=== PATIENT | male | born 1970 | race African-American/Black ===

== ENCOUNTER 2017-01-16 08:03 | Inpatient (IN) | payer OTHER, MEDICAID ==
[~2017-01-16] VITALS: Ht 175.3 cm; Wt 76.8 kg
[2017-01-16 08:07] VITALS: BP 115/78
[2017-01-16] MEDS ORDERED: NACL 0.9% 1,000 ML IV SCH ×2 (08:17→11:35)
[2017-01-16] MEDS ORDERED: KETOROLAC 30 MG/ML VIAL IVP ONE (08:20)
[2017-01-16] MEDS ORDERED: DIPHENOXYLATE /ATROPINE 2.5 MG TAB PO ONE (08:20)
[2017-01-16 09:08] LABS: HEMATOCRIT 47.3 % (36-52); HEMOGLOBIN 15.1 g/dL (12.0-18.0); MEAN CORPUSCULAR HEMOGLOBIN 27 pg (27-31); MEAN CORPUSCULAR HGB CONC 32 g/dL (33-37); MEAN CORPUSCULAR VOLUME 84 fL (80-94); PLATELET COUNT (AUTO) 258 K/uL (140-450); RED BLOOD CELL COUNT(AUTO) 5.66 MIL/uL (4.20-6.10); RED CELL DISTRIBUTION WIDTH 21.9 % (11.6-13.7); WHITE BLOOD COUNT (AUTO) 15.8 K/uL (4.8-10.8)
[2017-01-16 09:28] LABS: ALBUMIN 2.5 g/dL (3.4-5.0); ANION GAP 16.3 (8-16); CALCIUM 10.3 mg/dL (8.5-10.1); CARBON DIOXIDE 22.8 mmol/L (21-32); CREATININE 1.6 mg/dL (0.7-1.3); POTASSIUM 3.1 mmol/L (3.5-5.1); TOTAL BILIRUBIN 0.8 mg/dL (0.0-1.0); TOTAL PROTEIN, SERUM 8.3 g/dL (6.4-8.2)
[2017-01-16 09:43] LABS: BAND % (MANUAL) 10 % (0-8); LYMPHOCYTES % (MANUAL) 8 % (20-46); MONOCYTES % (MANUAL) 4 % (5-12)
[2017-01-16 09:44] LABS: EOSINOPHILS % (MANUAL) 1 % (0-4)
[2017-01-16 09:45] LABS: NEUTROPHILS % (MANUAL) 77 (43-65)
[2017-01-16 09:46] LABS: ANISOCYTOSIS 1+; PLATELET ESTIMATE ADEQUATE
[2017-01-16] MEDS ORDERED: POTASSIUM CHL 40 MEQ/ D5-1/2NS 1,000 ML IV ONE (10:50)
[2017-01-16] MEDS ORDERED: MORPHINE SULFATE 2 MG/ML SYR IVP PRN ×2 (11:35→12:10)
[2017-01-16] MEDS ORDERED: ACETAMINOPHEN 325 MG TAB PO PRN ×2 (11:35→12:10)
[2017-01-16] MEDS ORDERED: HYDROcodone/APAP 5/325 MG 1 TAB TAB PO PRN (11:35)
[2017-01-16] MEDS ORDERED: ONDANSETRON 4 MG/2 ML VIAL IVP PRN (11:35)
[2017-01-16] MEDS ORDERED: ONDANSETRON 4 MG/2 ML VIAL IM/IVP PRN (12:10)
[2017-01-16] MEDS ORDERED: DOCUSATE SODIUM 100 MG GELCAP PO PRN (12:10)
[2017-01-16] MEDS ORDERED: NACL 0.9% 1,500 ML IV SCH (12:20)
[2017-01-16] MEDS: NACL 0.9% 1,000 ML IV SCH ×2 (13:05→18:54)
[2017-01-16 13:15] VITALS: BP 109/64
[2017-01-16 13:29] LABS: INR 1.1 (0.8-1.2); PARTIAL THROMBOPLASTIN TIME 27.2 secs (22-35.6); PROTHROMBIN TIME 11.5 secs (10.8-13.4)
[2017-01-16 13:45] LABS: CHOL/HDL RATIO 3.5 (1-4.5); FREE T4 (FREE THYROXINE) 1.49 ng/dL (0.76-1.46); MAGNESIUM 1.9 mg/dL (1.8-2.4); PHOSPHORUS 3.4 mg/dL (2.5-4.9); THYROID STIMULATING HORMONE 1.54 uIU/mL (0.34-3.74)
[2017-01-16] MEDS: LEVOFLOXACIN 750 MG/D5W PREMIX 150 ML IV SCH (13:53)
[2017-01-16] MEDS: metroNIDAZOLE 500 MG/NS PREMIX 100 ML IV SCH ×2 (13:55→20:55)
[2017-01-16 16:37] VITALS: BP 127/70
[2017-01-16] MEDS ORDERED: DEXTROSE 50% 50 ML SYR IVP PRN (16:50)
[2017-01-16] MEDS ORDERED: NACL 0.9% 1,000 ML IV ONE (17:05)
[2017-01-16] MEDS ORDERED: POTASSIUM CHLORIDE 40 MEQ, LIDOCAINE 1% 25 MG in NACL 0.9% 250 ML IV SCH (18:15)
[2017-01-16] MEDS: HYDROmorphone 1 MG/ML AMP IVP PRN (19:08)
[2017-01-16 19:52] VITALS: BP 122/58
[2017-01-16] MEDS: BLOOD GLUCOSE MONITORING 1 DEV DEV FS SCH (20:54)
[2017-01-16] MEDS: INSULIN LISPRO SLIDING SCALE 100 UNITS/ML VIAL SUBQ PRN (20:57)
[2017-01-16] MEDS ORDERED: FUROSEMIDE 20 MG/2 ML VIAL IVP SCH (21:10)
[2017-01-16 23:21] VITALS: BP 127/73
[2017-01-17] MEDS ORDERED: METOPROLOL 25 MG TAB PO SCH (00:55)
[2017-01-17] MEDS: NACL 0.9% 1,000 ML IV SCH ×2 (01:53→11:52)
[2017-01-17 02:38] LABS: APPEARANCE,URINE CLEAR (CLEAR); BILIRUBIN,URINE NEGATIVE (NEGATIVE); BLOOD, URINE 3+ (NEGATIVE); COLOR,URINE YELLOW (YELLOW); LEUKOCYTE ESTERASE ,URINE NEGATIVE (NEGATIVE); NITRITE, URINE NEGATIVE (NEGATIVE); PH,URINE 5.5 (5.0-9.0); PROTEIN,URINE NEGATIVE (NEGATIVE); UGLUCOSE NEGATIVE (NEGATIVE); UROBILINOGEN,URINE 0.2 EU/dL (0.2 - 1)
[2017-01-17 02:48] LABS: AMPHETAMINE, URINE NEG. ng/ml (NEG <=1000); BARBITURATE, URINE NEG. ng/ml (NEG <=200); BENZODIAZEPINE, URINE NEG. ng/mL (NEG <=200); CANNABINOID, URINE NEG. ng/mL (NEG <=50); COCAINE, URINE NEG. ng/mL (NEG <=300); OPIATE, URINE NEG. ng/mL (NEG <=2000); PHENCYCLIDINE SCREEN,URINE NEG. ng/mL (NEG <=25)
[2017-01-17 02:59] LABS: RBC,URINE 11-20 (MOD) /HPF (0-5)
[2017-01-17 03:00] LABS: BACTERIA,URINE 3+ /HPF (None Seen); SQUAMOUS EPITHELIAL CELL,UR 4-10 (MOD) /LPF (0-3 (FEW))
[2017-01-17 04:30] VITALS: BP 117/58
[2017-01-17] MEDS: metroNIDAZOLE 500 MG/NS PREMIX 100 ML IV SCH ×3 (05:34→21:37)
[2017-01-17] MEDS: BLOOD GLUCOSE MONITORING 1 DEV DEV FS SCH ×4 (06:23→21:36)
[2017-01-17] MEDS: HYDROmorphone 1 MG/ML AMP IVP PRN ×2 (06:27→13:36)
[2017-01-17] MEDS: INSULIN LISPRO SLIDING SCALE 100 UNITS/ML VIAL SUBQ PRN ×3 (06:31→21:44)
[2017-01-17 07:07] LABS: HEMATOCRIT 41.5 % (36-52); HEMOGLOBIN 13.3 g/dL (12.0-18.0); MEAN CORPUSCULAR HEMOGLOBIN 27 pg (27-31); MEAN CORPUSCULAR HGB CONC 32 g/dL (33-37); MEAN CORPUSCULAR VOLUME 84 fL (80-94); PLATELET COUNT (AUTO) 232 K/uL (140-450); RED BLOOD CELL COUNT(AUTO) 4.96 MIL/uL (4.20-6.10); RED CELL DISTRIBUTION WIDTH 22.2 % (11.6-13.7); WHITE BLOOD COUNT (AUTO) 15.7 K/uL (4.8-10.8)
[2017-01-17 07:12] LABS: ANION GAP 13.9 (8-16); CALCIUM 8.9 mg/dL (8.5-10.1); CARBON DIOXIDE 22.2 mmol/L (21-32); CREATININE 1.3 mg/dL (0.7-1.3); POTASSIUM 3.1 mmol/L (3.5-5.1)
[2017-01-17 07:18] LABS: MAGNESIUM 1.7 mg/dL (1.8-2.4); PHOSPHORUS 2.9 mg/dL (2.5-4.9)
[2017-01-17 08:00] VITALS: BP 99/59
[2017-01-17 08:03] LABS: ANISOCYTOSIS 1+; BAND % (MANUAL) 8 % (0-8); BASOPHILS % (MANUAL) 0 % (0-2); EOSINOPHILS % (MANUAL) 5 % (0-4); LYMPHOCYTES % (MANUAL) 11 % (20-46); MONOCYTES % (MANUAL) 14 % (5-12); NEUTROPHILS % (MANUAL) 62 (43-65); PLATELET ESTIMATE ADEQUATE
[2017-01-17] MEDS ORDERED: DIPHENOXYLATE /ATROPINE 2.5 MG TAB PO PRN (09:45)
[2017-01-17] MEDS: HYDROcodone/APAP 7.5/325 MG 1 TAB PO PRN ×2 (09:56→17:47)
[2017-01-17] MEDS ORDERED: MORPHINE SULFATE 2 MG/ML SYR IVP PRN (10:20)
[2017-01-17] MEDS ORDERED: POTASSIUM CHLORIDE 10 MEQ TABER PO SCH (11:00)
[2017-01-17] MEDS ORDERED: MAG SULF 2000 MG/WATER PREMIX 100 ML IV SCH (11:00)
[2017-01-17 12:00] VITALS: BP 101/56
[2017-01-17] MEDS ORDERED: SODIUM PHOS / POTASSIUM PHOS 1 PKT PDR PO SCH (12:00)
[2017-01-17] MEDS: LEVOFLOXACIN 750 MG/D5W PREMIX 150 ML IV SCH (12:31)
[2017-01-17 16:00] VITALS: BP 111/74
[2017-01-17] MEDS ORDERED: MAGNESIUM CITRATE 300 ML BTL PO SCH (18:00)
[2017-01-17] MEDS: METOCLOPRAMIDE 10 MG/2 ML INJ VIAL IVP SCH (18:58)
[2017-01-17] MEDS: POTASSIUM CHL 20 MEQ/NACL 0.9% 1,000 ML IV SCH ×2 (20:00→21:40)
[2017-01-17] MEDS: LACTULOSE 20 GM/30 ML UDC PO SCH (21:37)
[2017-01-18] VITALS: BP 110/58
[2017-01-18] MEDS: METOCLOPRAMIDE 10 MG/2 ML INJ VIAL IVP SCH ×4 (00:36→17:06)
[2017-01-18] MEDS: HYDROmorphone 1 MG/ML AMP IVP PRN ×2 (04:32→17:10)
[2017-01-18] MEDS: metroNIDAZOLE 500 MG/NS PREMIX 100 ML IV SCH ×3 (04:33→21:02)
[2017-01-18 06:31] LABS: ANION GAP 11.6 (8-16); CALCIUM 8.9 mg/dL (8.5-10.1); CARBON DIOXIDE 23.7 mmol/L (21-32); CREATININE 1.2 mg/dL (0.7-1.3); POTASSIUM 3.3 mmol/L (3.5-5.1)
[2017-01-18] MEDS: BLOOD GLUCOSE MONITORING 1 DEV DEV FS SCH ×4 (06:33→21:31)
[2017-01-18 06:35] LABS: MAGNESIUM 2.8 mg/dL (1.8-2.4)
[2017-01-18 06:50] LABS: HEMATOCRIT 40.5 % (36-52); HEMOGLOBIN 12.9 g/dL (12.0-18.0); MEAN CORPUSCULAR HEMOGLOBIN 27 pg (27-31); MEAN CORPUSCULAR HGB CONC 32 g/dL (33-37); MEAN CORPUSCULAR VOLUME 84 fL (80-94); PLATELET COUNT (AUTO) 207 K/uL (140-450); RED BLOOD CELL COUNT(AUTO) 4.81 MIL/uL (4.20-6.10); RED CELL DISTRIBUTION WIDTH 22.3 % (11.6-13.7); WHITE BLOOD COUNT (AUTO) 9.1 K/uL (4.8-10.8)
[2017-01-18 07:22] LABS: BAND % (MANUAL) 13 % (0-8); LYMPHOCYTES % (MANUAL) 11 % (20-46); MONOCYTES % (MANUAL) 6 % (5-12); NEUTROPHILS % (MANUAL) 70 (43-65)
[2017-01-18 08:00] VITALS: BP 110/72
[2017-01-18] MEDS: METOPROLOL 25 MG TAB PO SCH (09:53)
[2017-01-18] MEDS: LACTOBACILLUS RHAMNOSUS GG 1 EACH CAP PO SCH (09:53)
[2017-01-18] MEDS: HYDROcodone/APAP 7.5/325 MG 1 TAB PO PRN (09:53)
[2017-01-18] MEDS: LACTULOSE 20 GM/30 ML UDC PO SCH ×3 (09:53→21:02)
[2017-01-18] MEDS ORDERED: KCL 20 MEQ/WATER INJ PREMIX 200 ML IV SCH (11:00)
[2017-01-18] MEDS: LEVOFLOXACIN 750 MG/D5W PREMIX 150 ML IV SCH (12:42)
[2017-01-18] MEDS ORDERED: BOWEL EVACUANT DRINK 4,000 ML PDS PO SCH (15:02)
[2017-01-18] MEDS: POTASSIUM CHL 20 MEQ/NACL 0.9% 1,000 ML IV SCH (15:26)
[2017-01-18 16:00] VITALS: BP 131/64
[2017-01-18] MEDS ORDERED: POTASSIUM CHLORIDE 40 MEQ, LIDOCAINE 1% 25 MG in NACL 0.9% 250 ML IV SCH (17:00)
[2017-01-18] MEDS: SENNA 8.6 MG TAB PO SCH (17:06)
[2017-01-18] MEDS: INSULIN LISPRO SLIDING SCALE 100 UNITS/ML VIAL SUBQ PRN (17:07)
[2017-01-18 20:00] VITALS: BP 125/60
[2017-01-18 22:45] LABS: ANION GAP 12.1 (8-16); CARBON DIOXIDE 22.1 mmol/L (21-32); CREATININE 1.2 mg/dL (0.7-1.3); POTASSIUM 4.2 mmol/L (3.5-5.1)
[2017-01-19] VITALS: BP 130/76
[2017-01-19] MEDS: POTASSIUM CHL 20 MEQ/NACL 0.9% 1,000 ML IV SCH ×2 (00:05→10:05)
[2017-01-19] MEDS: metroNIDAZOLE 500 MG/NS PREMIX 100 ML IV SCH (05:23)
[2017-01-19] MEDS: METOCLOPRAMIDE 10 MG/2 ML INJ VIAL IVP SCH ×2 (05:24)
[2017-01-19 06:25] LABS: T4 (THYROXINE) 7.5 ug/dL (4.5-12.0)
[2017-01-19] MEDS: BLOOD GLUCOSE MONITORING 1 DEV DEV FS SCH ×2 (06:37→11:59)
[2017-01-19 07:06] LABS: BASOPHILS # (AUTO) 0.2 K/uL (0.00-0.22); BASOPHILS % (AUTO) 2.4 % (0.0-2.0); EOSINOPHILS # (AUTO) 0.1 K/uL (0-0.4); EOSINOPHILS % (AUTO) 2.2 % (0.0-4.0); HEMATOCRIT 38.6 % (36-52); HEMOGLOBIN 12.5 g/dL (12.0-18.0); LYMPHOCYTES # (AUTO) 0.9 K/uL (2.0-11.5); LYMPHOCYTES % (AUTO) 13.9 % (20.5-51.1); MEAN CORPUSCULAR HEMOGLOBIN 27 pg (27-31); MEAN CORPUSCULAR HGB CONC 32 g/dL (33-37); MEAN CORPUSCULAR VOLUME 84 fL (80-94); MONOCYTES % (AUTO) 14.9 % (1.7-9.3); NEUTROPHILS # (AUTO) 4.2 K/uL (1.8-7.7); NEUTROPHILS % (AUTO) 66.6 % (42.2-75.2); PLATELET COUNT (AUTO) 230 K/uL (140-450); RED BLOOD CELL COUNT(AUTO) 4.59 MIL/uL (4.20-6.10); RED CELL DISTRIBUTION WIDTH 23.3 % (11.6-13.7); WHITE BLOOD COUNT (AUTO) 6.4 K/uL (4.8-10.8)
[2017-01-19 07:57] LABS: ANION GAP 13.2 (8-16); CALCIUM 8.8 mg/dL (8.5-10.1); CARBON DIOXIDE 19.6 mmol/L (21-32); CREATININE 1.1 mg/dL (0.7-1.3); POTASSIUM 3.8 mmol/L (3.5-5.1)
[2017-01-19 08:00] VITALS: BP 102/58
[2017-01-19] MEDS: METOPROLOL 25 MG TAB PO SCH (09:00)
[2017-01-19] MEDS ORDERED: fentaNYL 0.05 MG/ML VIAL ONE (09:18)
[2017-01-19] MEDS ORDERED: MIDAZOLAM 2 MG/2 ML VIAL ONE (09:19)
[2017-01-19] MEDS ORDERED: diphenhydrAMINE 50 MG/ML VIAL ONE (09:19)
[2017-01-19] MEDS: LACTULOSE 20 GM/30 ML UDC PO SCH (09:59)
[2017-01-19] MEDS: LACTOBACILLUS RHAMNOSUS GG 1 EACH CAP PO SCH (09:59)
[2017-01-19] MEDS: SENNA 8.6 MG TAB PO SCH (10:00)
[2017-01-19 11:16] VITALS: BP 102/58
[2017-01-19 11:21] LABS: HEMOGLOBIN A1C 6.7 % (4.8-5.6)
[2017-01-19] MEDS: INSULIN LISPRO SLIDING SCALE 100 UNITS/ML VIAL SUBQ PRN (12:02)
[2017-01-19] MEDS ORDERED: DOCU-67 PO (13:09)
[2017-01-21] MEDS ORDERED: METF500T PO (17:34)
[2017-01-21] MEDS ORDERED: CEPH250C16 PO (17:35)
== END 2017-01-19 12:25 | disposition home or self-care (01) | DRG 871 ==
LOC: MED 08:03 → MTU 11:40
PROVIDERS: ADMIT Student in an Organized Health Care Education/Training Program; ATTEND Student in an Organized Health Care Education/Training Program
DX: A41.9 Sepsis, unspecified organism (principal); N17.0 Acute kidney failure with tubular necrosis; E43 Unspecified severe protein-calorie malnutrition; D68.59 Other primary thrombophilia; E87.1 Hypo-osmolality and hyponatremia; K56.7 Ileus, unspecified; K52.1 Toxic gastroenteritis and colitis; N39.0 Urinary tract infection, site not specified; A09 Infectious gastroenteritis and colitis, unspecified; A05.9 Bacterial foodborne intoxication, unspecified; N20.0 Calculus of kidney; E11.65 Type 2 diabetes mellitus with hyperglycemia; E83.42 Hypomagnesemia; E87.8 Other disorders of electrolyte and fluid balance, not elsewhere classified; E86.0 Dehydration; F15.90 Other stimulant use, unspecified, uncomplicated; B95.1 Streptococcus, group B, as the cause of diseases classified elsewhere; E87.6 Hypokalemia; K59.00 Constipation, unspecified; Z83.3 Family history of diabetes mellitus; Z82.49 Family history of ischemic heart disease and other diseases of the circulatory system; Z87.891 Personal history of nicotine dependence; Z68.25 Body mass index [BMI] 25.0-25.9, adult; Z59.0 Homelessness; Y92.89 Other specified places as the place of occurrence of the external cause; Z79.84 Long term (current) use of oral hypoglycemic drugs
CPT/HCPCS: 36415; 80048; 80053; 80305; 81001; 82150; 82272; 82948; 83036; 83605; 83690; 83735; 83880; 84100; 84436; 84439; 84443; 84479; 84484; 85025; 85610; 85730; 87040; 87045; 87070; 87081; 87086; 89055; 93005; 93925; 93970; 96374; 99285; J1170; J1200; J1815; J1885; J1940; J1956; J2001; J2250; J2270; J2765; J3010; J3475; J3480; J3490; J7030; Q9967

== ENCOUNTER 2019-12-23 11:23 | Inpatient (IN) | payer OTHER, MEDICAID ==
[~2019-12-23] VITALS: Ht 175.3 cm; Wt 74.8 kg
[~2019-12-23 11:23] MED LIST: CEPH250C16 PO; DOCU-299 PO; METF500T PO
[2019-12-23 11:26] VITALS: BP 113/67
--- NOTE | 2019-12-23 11:35 | NUR ---
PT AMBULATED TO ER BED 04
--- NOTE | 2019-12-23 11:45 | NUR ---
ASSESSMENT DONE AT 1145. 49 YEAR OLD MALE COMPLAINS OF BLOOD IN URINE SINCE YESTERDAY. PT NOTICED LARGED CLOTS WELL. PT ALSO COMPLAINS OF LOWER BACK PAIN AND RIGHT SIDE PAIN 01/21. PT AOX4, BREATHING EVEN AND UNLABORED, SKIN WARM AND DRY. BED IN LOWEST POSITION, LOCKED, BED RAIL UPX1. PMH - DM2, HTN, NEUROPATHY ALLERGIES - SEASONAL
[2019-12-23] MEDS ORDERED: KETOROLAC 30 MG/ML VIAL IVP ONE (11:50)
[2019-12-23] MEDS ORDERED: NACL 0.9% 1,000 ML IV ONE (11:50)
--- NOTE | 2019-12-23 12:00 | NUR ---
Note parker in EDM - 12/23/19 at 1308 by [employer] 49 YEAR OLD MALE COMPLAINS OF BLOOD IN URINE SINCE YESTERDAY. PT NOTICED LARGED CLOTS WELL. PT ALSO COMPLAINS OF LOWER BACK PAIN AND RIGHT SIDE PAIN 01/21. PT AOX4, BREATHING EVEN AND UNLABORED, SKIN WARM AND DRY. BED IN LOWEST POSITION, LOCKED, BED RAIL UPX1. PMH - DM2, HTN, NEUROPATHY ALLERGIES - SEASONAL
--- NOTE | 2019-12-23 12:00 | NUR ---
PT TAKEN TP CT
--- NOTE | 2019-12-23 12:10 | NUR ---
PT BACK FROM CT
[2019-12-23] MEDS ORDERED: cefTRIAXone 1,000 MG VIAL ONE (12:44)
[2019-12-23 13:10] LABS: APPEARANCE,URINE BLOODY (CLEAR); BILIRUBIN,URINE 3+ (NEGATIVE); BLOOD, URINE 3+ (NEGATIVE); COLOR,URINE RED (YELLOW); LEUKOCYTE ESTERASE ,URINE 3+ (NEGATIVE); NITRITE, URINE POSITIVE (NEGATIVE); PH,URINE 6.5 (5.0-9.0); UGLUCOSE 1+ (NEGATIVE)
[2019-12-23 13:14] LABS: BASOPHILS # (AUTO) 0.1 K/uL (0.00-0.22); BASOPHILS % (AUTO) 1.1 % (0.0-2.0); EOSINOPHILS # (AUTO) 0.1 K/uL (0-0.4); EOSINOPHILS % (AUTO) 0.7 % (0.0-4.0); HEMATOCRIT 25.5 % (36-52); HEMOGLOBIN 8.3 g/dL (12.0-18.0); LYMPHOCYTES # (AUTO) 1.1 K/uL (2.0-11.5); LYMPHOCYTES % (AUTO) 13.2 % (20.5-51.1); MEAN CORPUSCULAR HEMOGLOBIN 27 pg (27-31); MEAN CORPUSCULAR HGB CONC 32 g/dL (33-37); MEAN CORPUSCULAR VOLUME 82.1 fL (80-94); MONOCYTES # (AUTO) 0.9 K/uL (0.8-1.0); MONOCYTES % (AUTO) 10.4 % (1.7-9.3); NEUTROPHILS # (AUTO) 6.3 K/uL (1.8-7.7); NEUTROPHILS % (AUTO) 74.6 % (42.2-75.2); PLATELET COUNT (AUTO) 310 K/uL (140-450); RED BLOOD CELL COUNT(AUTO) 3.11 MIL/uL (4.20-6.10); WHITE BLOOD COUNT (AUTO) 8.4 K/uL (4.8-10.8)
[2019-12-23 13:19] LABS: RBC,URINE >100 /HPF (0-5); WBC,URINE 80-100 /HPF (0-5)
[2019-12-23 13:20] LABS: HYALINE CASTS, URINE 0-10 /LPF (None Seen)
[2019-12-23 13:32] LABS: BARBITURATE, URINE NEGATIVE ng/ml (NEG <=200); BENZODIAZEPINE, URINE NEGATIVE ng/mL (NEG <=200); CANNABINOID, URINE NEGATIVE ng/mL (NEG <=50); COCAINE, URINE NEGATIVE ng/mL (NEG <=300); OPIATE, URINE POSITIVE ng/mL (NEG <=2000); PHENCYCLIDINE SCREEN,URINE NEGATIVE ng/mL (NEG <=25)
[2019-12-23 13:44] LABS: ALBUMIN 2.1 g/dL (3.4-5.0); ANION GAP 16.2 (8-16); CARBON DIOXIDE 22.7 mmol/L (21-32); CREATININE 3.2 mg/dL (0.6-1.3)
[2019-12-23 13:47] LABS: POTASSIUM 2.9 mmol/L (3.5-5.1)
[2019-12-23] MEDS ORDERED: KCL 20 MEQ/WATER INJ PREMIX 100 ML IV ONE (13:50)
[2019-12-23] MEDS ORDERED: NACL 0.9% 1,500 ML IV ONE (13:50)
--- NOTE | 2019-12-23 14:10 | NUR ---
PT RESTING WITH EYES CLOSED, BREATHING EVEN AND UNLABORED.
[2019-12-23] MEDS ORDERED: MORPHINE SULFATE 2 MG/ML SYR IVP PRN (14:25)
[2019-12-23] MEDS ORDERED: ACETAMINOPHEN 325 MG TAB PO PRN (14:25)
[2019-12-23] MEDS ORDERED: HYDROcodone/APAP 7.5/325 MG 1 TAB PO PRN (14:25)
[2019-12-23] MEDS ORDERED: KETOROLAC 30 MG/ML VIAL IVP PRN (14:25)
[2019-12-23] MEDS ORDERED: DOCUSATE SODIUM 100 MG GELCAP PO PRN (14:25)
[2019-12-23] MEDS ORDERED: ONDANSETRON 4 MG/2 ML VIAL IM/IVP PRN (14:25)
[2019-12-23] MEDS: NACL 0.9% 1,000 ML IV SCH ×2 (14:42→21:14)
--- NOTE | 2019-12-23 15:13 | NUR ---
PT ALERT AND AWAKE, BREATHING EVEN AND UNLABORED. XRAY AT BEDSIDE
[2019-12-23 15:38] LABS: PROTHROMBIN TIME 11.5 secs (10.8-13.4)
--- NOTE | 2019-12-23 16:00 | NUR ---
Patient will be admitted to care of Danielle MANUEL. Admited to Tele. Will go to room 111A. Belongings list completed. Report to Danielle MANUEL. Pt will be taken to OR before going to room. Endorsed to Danielle MANUEL consent was not signed yet by
--- NOTE | 2019-12-23 16:00 | NUR ---
PT TAKEN TO OR
[2019-12-23] MEDS ORDERED: DESFLURANE 240 ML BTL INH ONE (16:08)
[2019-12-23] MEDS ORDERED: PROPOFOL 200 MG/20 ML VIAL IV ONE (16:08)
[2019-12-23] MEDS ORDERED: fentaNYL citrate 0.05 MG/ML VIAL ONE (16:08)
[2019-12-23] MEDS ORDERED: ONDANSETRON 4 MG/2 ML VIAL ONE (16:08)
[2019-12-23 17:17] LABS: MAGNESIUM 1.6 mg/dL (1.8-2.4); PHOSPHORUS 3.7 mg/dL (2.5-4.9); THYROID STIMULATING HORMONE 1.56 uIU/mL (0.34-3.74)
[2019-12-23] MEDS ORDERED: FLUCONAZOLE 100 MG/NS PREMIX 50 ML IV ONE (17:20)
[2019-12-23] MEDS ORDERED: POTASSIUM CHLORIDE 40 MEQ, LIDOCAINE MPF 1% 25 MG in NACL 0.9% 250 ML IV SCH (17:40)
[2019-12-23 17:41] LABS: CHOL/HDL RATIO 2.6 (1-4.5)
[2019-12-23] MEDS ORDERED: INSULIN LISPRO SLIDING SCALE 100 UNITS/ML VIAL SUBQ PRN (18:05)
[2019-12-23] MEDS ORDERED: DEXTROSE 50% 50 ML SYR IVP PRN (18:05)
[2019-12-23] MEDS ORDERED: GABA300C PO (18:08)
[2019-12-23] MEDS ORDERED: ABAC1TAB15 PO (18:08)
[2019-12-23] MEDS ORDERED: MIRT30TA PO (18:08)
[2019-12-23] MEDS ORDERED: ESCI10TA PO (18:08)
[2019-12-23] MEDS ORDERED: ATEN50TA8 PO (18:08)
[2019-12-23] MEDS ORDERED: ORE25 PO (18:08)
[2019-12-23] MEDS ORDERED: MAGNESIUM OXIDE 400 MG TAB PO SCH (18:15)
[2019-12-23] MEDS: LACTULOSE 20 GM/30 ML UDC PO SCH ×2 (18:15→21:00)
--- NOTE | 2019-12-23 18:35 | NUR ---
RECEIVED REPORT FROM OR NURSE, PT IS ASLEEP, PT HAS RAC 22G INFUSING LR AT 100ML/H, PT HAS CHAVEZ CATH IN PLACE, BED IN LOW POSITION WILL CONTINUE TO MONITOR, OBTAIN MRSA SWABS, WILL ENDORSE TO NIGHT NURSE FOR CONTINUITY OF CARE,
--- NOTE | 2019-12-23 19:30 | NUR ---
RECEIVED REPORT FROM DAY RN REGARDING THE PT FOR CONTINUITY OF CARE. RECEIVED PATIENT ASLEEP AND DROWSY DURING ROUNDS. PATIENT S/P CYSTOSCOPY, RIGHT UTEROSCOPY, STENT PLACEMENT & PYELOGRAM. CHAVEZ CATHETER DRAINING WITH PINK TINGED URINE, CLEAR. NO BLOOD CLOTS NOTED. VSS, AFEBRILE, SATING 97% ON RA. CHANGED THE IVF TO NS ORDERED. NO S/SX OF DISTRESS NOTED AT THIS TIME. CALL LIGHT WITHIN REACH.WILL CONTINUE POC AND MONITORING.
[2019-12-23 20:00] VITALS: BP 115/65
[2019-12-23] MEDS: BLOOD GLUCOSE MONITORING 1 DEV DEV FS SCH (21:07)
[2019-12-23] MEDS: MIRTAZAPINE 15 MG TAB PO SCH (21:08)
--- NOTE | 2019-12-23 21:30 | NUR ---
PATIENT IS AWAKE NOW,A/AOX4. SERVED HIS DINNER AND GAVE ALL THE SCHEDULED MEDICATIONS ORDERED. NO COMPLAIN AT THIS TIME. CALL LIGHT WITHIN REACH. WILL CONTINUE POC.
[2019-12-23] MEDS ORDERED: FLUCONAZOLE 200 MG/NS PREMIX 100 ML IV ONE (23:30)
[2019-12-24] VITALS: BP 145/80
--- NOTE | 2019-12-24 | NUR ---
CHECKED PATIENT VITAL SIGNS. VSS, AFEBRILE, SATING 100% ON RA. NO C/O PAIN AT THIS TIME. CALL LIGHT WITHIN REACH.
--- NOTE | 2019-12-24 02:00 | NUR ---
PATIENT ASLEEP. VISIBLE CHEST RISE AND FALL NOTED. CALL LIGHT WITHIN REACH.NO S/SX OF DISTRESS NOTED.
--- NOTE | 2019-12-24 04:00 | NUR ---
PT SEEPING COMFORTABLY AND EASY TO AROUSE.NO COMPLAIN AT THIS TIME. CALL LIGHT WITHIN REACH. Addendum: 12/24/19 at 0625 by Nuzhat Rogers RN RN CORRECTION. PT SLEEPING COMFORTABLY.
[2019-12-24] MEDS ORDERED: cefTRIAXone 1,000 MG VIAL ONE (05:59)
[2019-12-24] MEDS: BLOOD GLUCOSE MONITORING 1 DEV DEV FS SCH ×4 (06:00→21:00)
[2019-12-24] MEDS: NACL 0.9% 1,000 ML IV SCH ×2 (06:06→21:49)
--- NOTE | 2019-12-24 06:24 | NUR ---
NO ACUTE EVENTS THROUGHOUT THE NIGHT. NO SIGN AND SYMPTOMS OF DISTRESS NOTED. PT HAS NO COMPLAIN AT THIS TIME. ALL NEEDS ATTENDED. CALL LIGHT WITHIN REACH. WILL ENDORSE THE PT TO THE ONCOMING RN FOR CONTINUITY OF CARE.
--- NOTE | 2019-12-24 07:10 | NUR ---
RECEIVED BEDSIDE REPORT FROM DIPLOMATIC INTERPRETER/TRANSLATOR RN FOR CONTINUITY OF CARE. PATIENT ASLEEP AND IN BED. PATIENT IS AAOX4, ABLE TO MAKE NEEDS KNOWN. PATIENT S/P CYSTOSCOPY, RIGHT UTEROSCOPY, STENT PLACEMENT & PYELOGRAM. CHAVEZ CATHETER DRAINING WITH BLOOD TINGED URINE. VSS, AFEBRILE, STATING 97% ON RA. NO S/SX OF DISTRESS NOTED AT THIS TIME. CALL LIGHT WITHIN REACH. POC DISCUSSED AND PATIENT VERBALIZES UNDERSTANDING. WILL CONTINUE TO MONITOR.
[2019-12-24 08:00] VITALS: BP 127/71
[2019-12-24 08:24] LABS: BASOPHILS # (AUTO) 0.1 K/uL (0.00-0.22); BASOPHILS % (AUTO) 0.8 % (0.0-2.0); EOSINOPHILS % (AUTO) 0.5 % (0.0-4.0); HEMATOCRIT 25.6 % (36-52); HEMOGLOBIN 8.2 g/dL (12.0-18.0); LYMPHOCYTES # (AUTO) 0.9 K/uL (2.0-11.5); LYMPHOCYTES % (AUTO) 11.9 % (20.5-51.1); MEAN CORPUSCULAR HEMOGLOBIN 27 pg (27-31); MEAN CORPUSCULAR HGB CONC 32 g/dL (33-37); MEAN CORPUSCULAR VOLUME 83.5 fL (80-94); MONOCYTES % (AUTO) 12.2 % (1.7-9.3); NEUTROPHILS # (AUTO) 5.8 K/uL (1.8-7.7); NEUTROPHILS % (AUTO) 74.6 % (42.2-75.2); PLATELET COUNT (AUTO) 293 K/uL (140-450); RED BLOOD CELL COUNT(AUTO) 3.07 MIL/uL (4.20-6.10); RED CELL DISTRIBUTION WIDTH 17.9 % (11.6-13.7); WHITE BLOOD COUNT (AUTO) 7.8 K/uL (4.8-10.8)
[2019-12-24 08:25] LABS: ANION GAP 12.4 (8-16); CARBON DIOXIDE 24.8 mmol/L (21-32); CREATININE 2.9 mg/dL (0.6-1.3); POTASSIUM 3.2 mmol/L (3.5-5.1)
[2019-12-24 08:30] LABS: MAGNESIUM 1.6 mg/dL (1.8-2.4); PHOSPHORUS 3.6 mg/dL (2.5-4.9)
--- NOTE | 2019-12-24 08:40 | NUR ---
PATIENT HAS BEEN SCREENED AND CATEGORIZED MODERATE NUTRITION RISK. PATIENT WILL BE SEEN WITHIN 3-5 DAYS OF ADMISSION. 12/26/2019-12/28/[address]
[2019-12-24] MEDS: ESCITALOPRAM 20 MG TAB PO SCH (09:25)
[2019-12-24] MEDS: atenoloL 50 MG TAB PO SCH (09:25)
[2019-12-24] MEDS: LACTOBACILLUS RHAMNOSUS GG 1 EACH CAP PO SCH (09:26)
--- NOTE | 2019-12-24 09:26 | NUR ---
MORNING MEDICATIONS GIVEN. PATIENT COMPLAINS OF SURGERY PAIN 8/10, MEDICATED WITH NORCO PRN. NO SIGNS OF DISTRESS NOTED. WILL CONTINUE TO MONITOR.
[2019-12-24] MEDS: GABAPENTIN 300 MG CAP PO SCH (09:29)
[2019-12-24] MEDS: hydroCHLOROthiazide 25 MG TAB PO SCH (09:29)
--- NOTE | 2019-12-24 12:11 | NUR ---
NO INSULIN COVERAGE GIVEN FOR BLOOD GLUCOSE OF 105. PATIENT ASLEEP AND IN BED, NO SIGNS OF DISTRESS NOTED. V/S IS WNL. WILL CONTINUE TO MONITOR.
[2019-12-24] MEDS ORDERED: MAGNESIUM OXIDE 400 MG TAB PO SCH (12:15)
[2019-12-24] MEDS ORDERED: POTASSIUM CHLORIDE 10 MEQ TABER PO SCH (12:15)
--- NOTE | 2019-12-24 12:30 | NUR ---
PATIENTS' HOME MEDICATION GIVEN TO PHARMACY. WILL CONTINUE TO MONITOR.
[2019-12-24] MEDS ORDERED: LACTULOSE 20 GM/30 ML UDC PO SCH ×2 (13:00→21:00)
--- NOTE | 2019-12-24 16:52 | NUR ---
2 UNITS OF INSULIN GIVEN FOR BLOOD GLUCOSE OF 153. NO SIGNS OF DISTRESS NOTED. IRRIGATED CHAVEZ CATHETER WITH 30ML OF NS, CHAVEZ CATHETER DRAINING WELL. URINE OUTPUT REMAINS HEMATURIC WITH PUS. WILL INFORM MD. WILL CONTINUE TO MONITOR.
--- NOTE | 2019-12-24 19:25 | NUR ---
ENDORSED TO STEVEDORING SUPERINTENDENT NURSE FOR CONTINUITY OF CARE.
--- NOTE | 2019-12-24 19:26 | NUR ---
RECD.D RESTING IN BED, AWAKE, A/OX4. RESPIRATION EVEN AND UNLABORED. IV OF NS AT 100 ML/HR INFUSING, RIGHT AC G22. WITH CHAVEZ CATHETER DRAINING LIGHT RED URINE, NO BLOOD CLOTS NOTED. PLAN OF CARE FOR THE SHIFT DISCUSSED. VERBALIZED UNDERSTANDING. DENIES PAIN 0/10.
[2019-12-24 20:00] VITALS: BP 118/70
[2019-12-24] MEDS: MIRTAZAPINE 15 MG TAB PO SCH (21:58)
[2019-12-25 04:00] VITALS: BP 130/78
[2019-12-25] MEDS: NACL 0.9% 1,000 ML IV SCH ×3 (04:51→17:49)
[2019-12-25] MEDS: BLOOD GLUCOSE MONITORING 1 DEV DEV FS SCH ×4 (05:50→21:35)
--- NOTE | 2019-12-25 07:10 | NUR ---
RECEIVED PATIENT FROM NIGHT NURSE. PATIENT IS CURRENTLY ASLEEP AND SITTING UP IN BED WITH NO SIGNS OF DISTRESS. RESPIRATIONS ARE CURRENTLY EVEN AND UNLABORED ON ROOM AIR WITH NO DIFFICULTIES BREATHING. SKIN IS INTACT WITH IV PATENT ASYMPTOMATIC AND INFUSING PER ORDERS. SAFETY MEASURES IN PLACE AND WILL CONTINUE TO MONITOR PLAN OF CARE.
[2019-12-25 08:09] LABS: BASOPHILS # (AUTO) 0.1 K/uL (0.00-0.22); BASOPHILS % (AUTO) 1.3 % (0.0-2.0); HEMATOCRIT 23.5 % (36-52); HEMOGLOBIN 7.5 g/dL (12.0-18.0); LYMPHOCYTES # (AUTO) 1.1 K/uL (2.0-11.5); LYMPHOCYTES % (AUTO) 22.1 % (20.5-51.1); MEAN CORPUSCULAR HEMOGLOBIN 27 pg (27-31); MEAN CORPUSCULAR HGB CONC 32 g/dL (33-37); MEAN CORPUSCULAR VOLUME 83.2 fL (80-94); MONOCYTES # (AUTO) 0.7 K/uL (0.8-1.0); MONOCYTES % (AUTO) 13.4 % (1.7-9.3); NEUTROPHILS # (AUTO) 3.1 K/uL (1.8-7.7); NEUTROPHILS % (AUTO) 62.2 % (42.2-75.2); PLATELET COUNT (AUTO) 273 K/uL (140-450); RED BLOOD CELL COUNT(AUTO) 2.82 MIL/uL (4.20-6.10); RED CELL DISTRIBUTION WIDTH 18.3 % (11.6-13.7)
[2019-12-25 08:43] LABS: ANION GAP 12.7 (8-16); CARBON DIOXIDE 23.1 mmol/L (21-32); CREATININE 2.6 mg/dL (0.6-1.3); POTASSIUM 3.8 mmol/L (3.5-5.1)
[2019-12-25 09:21] LABS: T4 (THYROXINE) 7.9 ug/dL (4.5-12.0)
[2019-12-25] MEDS: GABAPENTIN 300 MG CAP PO SCH (09:49)
[2019-12-25] MEDS: hydroCHLOROthiazide 25 MG TAB PO SCH (09:49)
[2019-12-25] MEDS: atenoloL 50 MG TAB PO SCH (09:50)
[2019-12-25] MEDS: LACTOBACILLUS RHAMNOSUS GG 1 EACH CAP PO SCH (09:50)
[2019-12-25] MEDS: ESCITALOPRAM 20 MG TAB PO SCH (09:50)
--- NOTE | 2019-12-25 09:57 | NUR ---
ADMINISTERED MEDICATIONS PER ORDER AND TOLERATED WELL. PATIENT IS CURRENTLY EATING BREAKFAST IN BED WITH NO SIGNS OF DISTRESS. SAFETY MEASURES IN PLACE AND WILL CONTINUE TO MONITOR.
--- NOTE | 2019-12-25 11:00 | NUR ---
PATIENT IS CURRENTLY ASLEEP IN BED WITH NO SIGNS OF DISTRESS AT THIS TIME. SAFETY MEASURES IN PLACE AND WILL CONTINUE TO MONITOR PLAN OF CARE.
[2019-12-25 11:43] LABS: MAGNESIUM 1.7 mg/dL (1.8-2.4); PHOSPHORUS 2.9 mg/dL (2.5-4.9)
--- NOTE | 2019-12-25 11:51 | NUR ---
DISCHARGE PLANNING: CONTACTED ADONIS DERAS [facility] [place] AT [phone], NO ANSWER. LEFT MESSAGE. CONTACTED ADONIS ALFORD OF [facility] [place] AT [phone], NO ANSWER. LEFT MESSAGE. WILL FOLLOW UP. Addendum: 12/25/19 at 1403 by Mayra Weinstein CM CONTACTED ADONIS ROCÍO [facility] [place] AGAIN, TO FOLLOW UP ON THE AUT. PER ROCÍO THEY HAVE A DIFFERENT PROCESS NOW, IF PATIENT IS ADMITTED DURING THE WEEKEND OR AFTER HOURS (AFTER 1500 ON WEDNESDAY AND WEEKENDS UNTIL WEDNESDAY AT 0800) THEY HAVE TWO RN EMERGENCY ROOM NURSES (THAT PROCESS THE AUTH) RAY [phone] AND AUGUSTA [phone]. CONTACTED RAY AND AUGUSTA, NO ANSWER. LEFT VOICEMAIL ON BOTH. Addendum: 12/25/19 at 1414 by Mayra Weinstein CM THIS IS A 49 Y/O MALE PATIENT FROM HOME, WHO CAME IN DUE TO RIGHT ABDOMINAL PAIN. PAST MEDICAL HISTORY INCLUDE HIV, HTN, ANXIETY AND DIABETES. INITIAL DIAGNOSIS OF KIDNEY STONE, UTI AND SEPSIS. CURRENT LABS INCLUDE WBC 5.0, H/H 7.5/23.5, NA/K 141/3.8, BUN/CREA 18/2.6, MAG 1.7. ABD/PELVIS CT SHOWED MILD RIGHT OBSTRUCTIVE UROPATHY. UROLOGY CONSULT IN PLACE AND SEEN, S/P RIGHT URETERAL STENT PLACEMENT 12/23/[address] HERNÁNDEZ. DC PLAN BACK TO HOME ONCE STABLE. Addendum: 12/25/19 at 1617 by Mayra Weinstein CONTACTED ADONIS DERAS OF [facility] [place] AT [phone] REGARDING AUTH. SHE PROVIDED ME WITH AUTH [id number]. INFORMED HER THAT IF PATIENT IS STABLE FOR TRANSFER TO CONTRACTED FACILITY, DO THEY WANT THE PATIENT TRANSFERRED. SHE STATED THERE ARE NO BEDS AVAILABLE IN [facility] AT THIS TIME AND CAN KEEP THE PATIENT FOR NOW. I INFORMED HER THAT I WILL CALL HER AGAIN TOMORROW TO UPDATE HER OF THE PATIENT'S CONDITION. PER ADONIS DERAS, WE HAVE TO CONTACT ADONIS ALFORD FOR UPDATES BECAUSE SHE IS NOT THE OUT OF AREA CM. Addendum: 12/26/19 at 1109 by Mayra Weinstein CM RECEIVED A CALL FROM ADONIS ALFORD OF [facility] [place]. UPDATED HER OF THE PATIENT'S CONDITION. I INQUIRED IF THEY WANT TO TRANSFER PATIENT TO THEIR CONTRACTED FACILITY. SHE STATED IF WE PLAN TO DC PATIENT IN 24-48 HOURS TO JUST KEEP THE PATIENT. Addendum: 12/27/19 at 1158 by Mayra Weinstein CM RECEIVED ORDER FOR DC TODAY. ADONIS ALFORD OF [facility] [place] [phone], MADE AWARE OF DC THAT PATIENT NEEDS TO FOLLOW UP WITH PCP WITHIN 3 DAYS AND UROLOGY FOLLOW UP WITH DR. JOHNSON. SHE STATED TO GO AHEAD AND FAX OVER THE DC ORDER SO SHE CAN FORWARD IT TO THEIR OUT PATIENT DEPARTMENT. DC ORDER FAXED TO [facility] [place].
--- NOTE | 2019-12-25 12:45 | NUR ---
PATIENT IS CURRENTLY ABOUT TO EAT LUNCH AT BEDSIDE WITH NO SIGNS OF DISTRESS. BLOOD GLUCOSE IS CURRENTLY 106 THEREFORE NO INSULIN COVERAGE IS NEEDED AT THIS TIME. SAFETY MEASURES IN PLACE AND WILL CONTINUE TO MONITOR.
--- NOTE | 2019-12-25 13:07 | NUR ---
ADMINISTERED MEDICATIONS PER ORDER AND TOLERATED WELL. PATIENT IS CURRENTLY EATING LUNCH AT THIS TIME WITH NO SIGNS OF DISTRESS. SAFETY MEASURES IN PLACE AND WILL CONTINUE TO MONITOR.
--- NOTE | 2019-12-25 13:26 | NUR ---
LATHE TENDER NOTE: BERTA WAS UNABLE TO MEET PATIENT AT BEDSIDE DUE TO MEDICAL CONDITION. BERTA CONTACTED MIKE WALDRON [phone] AND LEFT VM. BERTA WILL FOLLOW UP.
--- NOTE | 2019-12-25 14:50 | NUR ---
PATIENT IS CURRENTLY ASLEEP WITH NO SIGNS OF DISTRESS. SAFETY MEASURES IN PLACE AND WILL CONTINUE TO MONITOR.
--- NOTE | 2019-12-25 15:22 | NUR ---
ADMINISTERED PAIN MEDICATION FOR PAIN OF . WILL REASSESS PAIN IN ONE HOUR. SAFETY MEASURES IN PLACE AND WILL CONTINUE TO MONITOR. Addendum: 12/25/19 at 1556 by Rufina Olson RN WRONG PATIENT
[2019-12-25 16:00] VITALS: BP 105/44
--- NOTE | 2019-12-25 16:01 | NUR ---
PATIENT IS CURRENTLY WATCHING TV AND SITTING UP IN BED. PATIENT HAS NO COMPLAINTS OF PAIN AT THIS TIME. SAFETY MEASURES IN PLACE AND WILL CONTINUE TO MONITOR PLAN OF CARE.
--- NOTE | 2019-12-25 19:15 | NUR ---
RECEIVED ENDORSEMENT FROM AM SHIFT RN. PATIENT IS AOX4. NO SOB. NOTED IV AT LH 20G, INFUSING IVF AT 100CC/HR. INTACT AND PATENT. ASSESSMENT DONE. LOW BED IN PLACE. PLAN OF CARE WAS DISCUSSED. CALL LIGHT WITHIN REACH. WILL CONTINUE TO MONITOR.
[2019-12-25] MEDS: MIRTAZAPINE 15 MG TAB PO SCH (21:00)
--- NOTE | 2019-12-25 21:58 | NUR ---
PATIENT IS ASLEEP, AROUSABLE TO VERBAL. REFUSED TO TAKE REMERON PO.
[2019-12-26] VITALS: BP 129/74
[2019-12-26] MEDS: NACL 0.9% 1,000 ML IV SCH ×2 (03:49→09:27)
[2019-12-26 06:07] LABS: CHLAMYDIA TRACHOMATIS AMP DNA Negative (Negative)
[2019-12-26] MEDS: BLOOD GLUCOSE MONITORING 1 DEV DEV FS SCH ×4 (06:19→21:52)
[2019-12-26 06:59] LABS: BASOPHILS % (AUTO) 0.7 % (0.0-2.0); EOSINOPHILS % (AUTO) 1.1 % (0.0-4.0); HEMATOCRIT 23.3 % (36-52); HEMOGLOBIN 7.5 g/dL (12.0-18.0); LYMPHOCYTES % (AUTO) 27.1 % (20.5-51.1); MEAN CORPUSCULAR HEMOGLOBIN 26 pg (27-31); MEAN CORPUSCULAR HGB CONC 32 g/dL (33-37); MEAN CORPUSCULAR VOLUME 82.5 fL (80-94); MONOCYTES # (AUTO) 0.5 K/uL (0.8-1.0); MONOCYTES % (AUTO) 12.6 % (1.7-9.3); NEUTROPHILS # (AUTO) 2.2 K/uL (1.8-7.7); NEUTROPHILS % (AUTO) 58.5 % (42.2-75.2); PLATELET COUNT (AUTO) 277 K/uL (140-450); RED BLOOD CELL COUNT(AUTO) 2.83 MIL/uL (4.20-6.10); WHITE BLOOD COUNT (AUTO) 3.8 K/uL (4.8-10.8)
--- NOTE | 2019-12-26 07:20 | NUR ---
PATIENT IS IN STABLE CONDITION. STILL NOTED WITH HEMATURIA. ENDORSED TO AM SHIFT RN FOR CONTINUITY OF CARE.
--- NOTE | 2019-12-26 07:20 | NUR ---
RECEIVED PATIENT FROM NIGHT NURSE. PATIENT IS AO X4. WITH NO SIGNS OF DISTRESS. RESPIRATIONS ARE CURRENTLY EVEN AND UNLABORED ON ROOM AIR. SAFETY MEASURES IN PLACE AND WILL CONTINUE TO MONITOR. MNMARISABELLS
[2019-12-26 08:00] VITALS: BP 136/82
[2019-12-26 08:41] LABS: ANION GAP 12.7 (8-16); CARBON DIOXIDE 23.1 mmol/L (21-32); CREATININE 2.2 mg/dL (0.6-1.3); POTASSIUM 3.8 mmol/L (3.5-5.1)
[2019-12-26] MEDS: LACTOBACILLUS RHAMNOSUS GG 1 EACH CAP PO SCH (09:21)
[2019-12-26] MEDS: GABAPENTIN 300 MG CAP PO SCH (09:21)
[2019-12-26] MEDS: atenoloL 50 MG TAB PO SCH (09:22)
[2019-12-26] MEDS: ESCITALOPRAM 20 MG TAB PO SCH (09:22)
[2019-12-26] MEDS: hydroCHLOROthiazide 25 MG TAB PO SCH (09:31)
--- NOTE | 2019-12-26 09:34 | NUR ---
ADMINISTERED SCHEDULED MEDICATIONS, EDUCATION WAS GIVEN, PATIENT TOLERATED WELL.
--- NOTE | 2019-12-26 11:30 | NUR ---
PT RESTING IN BED, NO SIGNS OF DISTRESS NOTED, RESPIRATIONS ARE EVEN AND UNLABORED ON ROOM AIR, CALL LIGHT WITHIN REACH.
--- NOTE | 2019-12-26 13:43 | NUR ---
ADMINISTERED SCHEDULED MEDICATION, EDUCATION GIVEN, PATIENT TOLERATED WELL.
[2019-12-26 16:00] VITALS: BP 122/71
--- NOTE | 2019-12-26 16:41 | NUR ---
PT RESTING IN BED COMFORTABLE, NO ACUTE DISTRESS NOTED, BED IN LOW POSITION, SAFETY MEASURE IN PLACE. WILL CONTINUE TO MONITOR.
--- NOTE | 2019-12-26 19:27 | NUR ---
ENDORSED TO ADDICTION SOCIAL WORKER NURSE FOR CONTINUITY OF CARE.
--- NOTE | 2019-12-26 19:28 | NUR ---
RECD. RESTING IN BED, AWAKE, A/OX4. RESPIRATION EVEN AND UNLABORED. IV OF NS AT 100 ML/HR INFUSING, LEFT HAND G20. HAD EATEN ONLY 30% OF DINNER, ENCOURAGED TO EAT MORE. F/C PATENT DRAINING CLOUDY YELLOW URINE. ENCOURAGED TO DRINK MORE WATER. DOES NOT WANT CRANBERRY JUICE, PREFERS APPLE JUICE. PLAN OF CARE FOR THE SHIFT DISCUSSED. VERBALIZED UNDERSTANDING. DENIES PAIN 0/10.
--- NOTE | 2019-12-26 20:30 | NUR ---
ATE SOME OF THE UNFINISHED MEAL IN HIS BEDSIDE TABLE.
--- NOTE | 2019-12-26 21:30 | NUR ---
SNACK FOR THE NIGHT GIVEN.
[2019-12-26] MEDS: MIRTAZAPINE 15 MG TAB PO SCH (21:52)
[2019-12-27] VITALS: BP 123/79
--- NOTE | 2019-12-27 | NUR ---
SLEEPING COMFORTABLY IN BED.
[2019-12-27] MEDS: NACL 0.9% 1,000 ML IV SCH ×2 (00:16→09:49)
--- NOTE | 2019-12-27 02:30 | NUR ---
APPLE JUICE GIVEN REQUESTED, DRINK ONE AND WENT BACK TO SLEEP.
--- NOTE | 2019-12-27 05:30 | NUR ---
STILL SLEEPING COMFORTABLY IN BED.
[2019-12-27] MEDS: BLOOD GLUCOSE MONITORING 1 DEV DEV FS SCH ×2 (06:18→11:49)
[2019-12-27 06:30] LABS: BASOPHILS % (AUTO) 1.2 % (0.0-2.0); EOSINOPHILS # (AUTO) 0.1 K/uL (0-0.4); EOSINOPHILS % (AUTO) 2.1 % (0.0-4.0); HEMATOCRIT 22.2 % (36-52); HEMOGLOBIN 7.1 g/dL (12.0-18.0); LYMPHOCYTES # (AUTO) 1.1 K/uL (2.0-11.5); LYMPHOCYTES % (AUTO) 26.8 % (20.5-51.1); MEAN CORPUSCULAR HEMOGLOBIN 27 pg (27-31); MEAN CORPUSCULAR HGB CONC 32 g/dL (33-37); MEAN CORPUSCULAR VOLUME 83.3 fL (80-94); MONOCYTES # (AUTO) 0.5 K/uL (0.8-1.0); MONOCYTES % (AUTO) 12.7 % (1.7-9.3); NEUTROPHILS # (AUTO) 2.3 K/uL (1.8-7.7); NEUTROPHILS % (AUTO) 57.2 % (42.2-75.2); PLATELET COUNT (AUTO) 250 K/uL (140-450); RED BLOOD CELL COUNT(AUTO) 2.66 MIL/uL (4.20-6.10); RED CELL DISTRIBUTION WIDTH 18.2 % (11.6-13.7)
[2019-12-27 06:55] LABS: CREATININE 2.3 mg/dL (0.6-1.3); POTASSIUM 3.7 mmol/L (3.5-5.1)
--- NOTE | 2019-12-27 07:00 | NUR ---
ABLE TO SLEEP WELL. CONDITION REMAIN STABLE. WILL ENDORSE TO AM SHIFT NURSE FOR CONTINUITY OF CARE.
--- NOTE | 2019-12-27 07:01 | NUR ---
RECEIVED REPORT FROM WALLPAPER PRINTER NURSE DIMITRI. PT RESTING IN BED, AOX4, ON ROOM AIR WITH LEFT HAND #20G RUNNING NS @ 100ML/HR. DISCUSSED PLAN OF CARE AND PT VERBALIZED UNDERSTANDING. CALL LIGHT WITHIN REACH. NO S/S OF RESPIRATORY DISTRESS OR DISCOMFORT NOTED AT THIS TIME. WILL CONTINUE TO MONITOR.
[2019-12-27 08:00] VITALS: BP 113/69
[2019-12-27] MEDS: atenoloL 50 MG TAB PO SCH (09:00)
[2019-12-27] MEDS: hydroCHLOROthiazide 25 MG TAB PO SCH (09:00)
[2019-12-27 09:19] LABS: ANION GAP 13.6 (8-16); CARBON DIOXIDE 22.1 mmol/L (21-32)
[2019-12-27] MEDS: ESCITALOPRAM 20 MG TAB PO SCH (09:21)
[2019-12-27] MEDS: GABAPENTIN 300 MG CAP PO SCH (09:21)
[2019-12-27] MEDS: LACTOBACILLUS RHAMNOSUS GG 1 EACH CAP PO SCH (09:21)
--- NOTE | 2019-12-27 09:21 | NUR ---
SCHEDULED MEDICATIONS GIVEN AND TOLERATED WELL. ORETIC AND TENORMIN NOT GIVEN DUE TO DECREASED BLOOD PRESSURE 113/69, HR 79. PT TOLERATED WELL. CALL LIGHT WITHIN REACH. NO S/S OF RESPIRATORY DISTRESS OR DISCOMFORT NOTED AT THIS TIME. WILL CONTINUE TO MONITOR.
[2019-12-27] MEDS ORDERED: CEPH250C16 PO (11:19)
--- NOTE | 2019-12-27 11:30 | NUR ---
BLOOD GLUCOSE 89- NO NEED FOR INSULIN COVERAGE. OFFERED PT JUICE HOWEVER PT STATED HE DID NOT NEED ANYTHING AT THIS TIME. SO S/S OF LOW BLOOD GLUCOSE. CALL LIGHT WITHIN REACH. NO S/S OF RESPIRATORY DISTRESS OR DISCOMFORT NOTED AT THIS TIME. WILL CONTINUE TO MONITOR.
--- NOTE | 2019-12-27 13:28 | NUR ---
SCHEDULED MEDICATION ABACAVIR GIVEN AND TOLERATED WELL. CALL LIGHT WITHIN REACH. NO S/S OF RESPIRATORY DISTRESS OR DISCOMFORT NOTED AT THIS TIME. WILL CONTINUE TO MONITOR.
[2019-12-27 14:21] VITALS: BP 113/69
--- NOTE | 2019-12-27 15:45 | NUR ---
PT SIGNED ALL DISCHARGE PAPERWORK. BUS PASS GIVEN. ALL RX MEDICATION RETURNED. CHAVEZ CATHETER REMOVED AND IV SITE REMOVED-CATHETER INTACT. PT TOLERATED WELL. PT GETTING DRESSED AND INSTRUCTED TO USE CALL LIGHT WHEN READY. CALL LIGHT WITHIN REACH. NO S/S OF RESPIRATORY DISTRESS OR DISCOMFORT NOTED AT THIS TIME. WILL CONTINUE TO MONITOR.
--- NOTE | 2019-12-27 18:07 | NUR ---
PT WAS ESCORTED BY SECURITY TO FRONT LOBBY. PT IN STABLE CONDITION AT THIS TIME.
== END 2019-12-27 18:07 | disposition home or self-care (01) | DRG 853 ==
LOC: MED 11:23 → MTU 14:21 → MMU 12-25 08:05
PROVIDERS: ADMIT General Practice; ATTEND General Practice
PROC: BT1D1ZZ Fluoroscopy of Right Kidney, Ureter and Bladder using Low Osmolar Contrast (ICD-10-PCS; 2019-12-23)
PROC: 0T768DZ Dilation of Right Ureter with Intraluminal Device, Via Natural or Artificial Opening Endoscopic (ICD-10-PCS; principal; 2019-12-23 15:45)
DX: A41.9 Sepsis, unspecified organism (principal); N17.0 Acute kidney failure with tubular necrosis; E43 Unspecified severe protein-calorie malnutrition; E87.1 Hypo-osmolality and hyponatremia; N13.6 Pyonephrosis; R65.20 Severe sepsis without septic shock; E87.6 Hypokalemia; I10 Essential (primary) hypertension; E11.65 Type 2 diabetes mellitus with hyperglycemia; F15.10 Other stimulant abuse, uncomplicated; F11.10 Opioid abuse, uncomplicated; Z21 Asymptomatic human immunodeficiency virus [HIV] infection status; F41.9 Anxiety disorder, unspecified; E11.40 Type 2 diabetes mellitus with diabetic neuropathy, unspecified; K72.90 Hepatic failure, unspecified without coma; F32.9 Major depressive disorder, single episode, unspecified; E83.42 Hypomagnesemia; D89.9 Disorder involving the immune mechanism, unspecified; Z68.24 Body mass index [BMI] 24.0-24.9, adult; Z79.899 Other long term (current) drug therapy; Z79.84 Long term (current) use of oral hypoglycemic drugs; Z87.891 Personal history of nicotine dependence
CPT/HCPCS: 36415; 71045; 80048; 80053; 80305; 81001; 82140; 82150; 82948; 83036; 83605; 83615; 83690; 83735; 83880; 84100; 84132; 84436; 84443; 85025; 85610; 85730; 87040; 87081; 87086; 87186; 87491; 96365; 96366; 96367; 96375; 99291; C1769; C2617; J0696; J1450; J1885; J2405; J2704; J3010; J3480; J7030; J7060; Q0092